=== PATIENT | female | born 1965 | race Caucasian/White ===

== ENCOUNTER 2020-10-24 15:15 | Outpatient (CLI) | payer OTHER, SELFPAY ==
--- NOTE | ~2020-10-24 | MM_ITS ---
EXAMINATION: MM screening janny BI w seun HISTORY: Screening TECHNIQUE: Craniocaudal and mediolateral oblique 3-D tomosynthesis images were obtained and synthetic 2-D images were generated. CAD analysis was submitted and interpreted. COMPARISON: Comparison to multiple prior studies sequentially, with oldest reviewed study dated 04/20. BREAST PARENCHYMAL COMPOSITION: There are scattered areas of fibroglandular density. FINDINGS: There is no evidence of suspicious mass, calcification, or architectural distortion to sugg est malignancy in either breast. There has been no suspicious interval change. IMPRESSION: 1. No mammographic evidence of malignancy. 2. Recommend routine screening mammography in one year. BI-RADS Category 1: Negative Reviewed, dictated and finalized at location A. 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
== END 2020-10-24 15:16 | disposition home or self-care (01) ==
LOC: ANHIMG 15:17
PROVIDERS: Visit Provider Nurse Practitioner Obstetrics & Gynecology
DX: Z12.31 Encounter for screening mammogram for malignant neoplasm of breast (principal)
CPT/HCPCS: 77063; 77067

== ENCOUNTER 2022-11-29 15:47 | Outpatient (CLI) | payer OTHER, SELFPAY ==
--- NOTE | ~2022-11-29 | DEXA_ITS ---
Bone Density Report Name: CYNTHIA FAUSTIN Age: 57 Sex: Female Ethnicity: White Date of : 1965 Indication: postmenopausal; screening for osteoporosis; height loss; Referring Provider: SOFIA, GAUTMA Saunders Study: Bone densitometry was performed. Exam Date: November 29, 2022 Accession number: [id number] Bone Density: Region BMD T-score Z-score Classification AP Spine(L1-L4) 1.084 0.3 1.5 Normal Femoral Neck (Left) 0.670 -1.6 -0.5 Osteopenia Total Hip (Left) 0.877 -0.5 0.2 Normal Femoral Neck (Right) 0.622 -2.0 -0.9 Osteopenia Total Hip (Right) 0.838 -0.9 -0.1 Normal Total Hip Mean 0.857 -0.7 0.1 Normal World Health Organization criteria for BMD impression classify patients as: Normal (T-score at or above -1.0), Osteopenia (T-score between -1.0 and -2.5), or Osteoporosis (T-score at or below -2.5). 10-year Fracture Risk(1): Major Osteoporotic Fracture 8.6% Hip Fracture 1.1% Reported Risk Factors: [place] (), Neck BMD=0.622, BMI=24.4 (1) FRAX(R) Version 3.08. Fracture probability calculated for an untreated patient. Fracture probability may be lower if the patient has received treatment. Clinical Information Provided by Patient: Has used the following medications: Vitamin D, Calcium Patient maximum height was 65.5 Menopause Age: 50 Drinks caffeinated beverages Onset of menses at age 12 Number of children 3 Impression: The patient has low bone mass, based on the Right Femoral Neck T-score. The patient has an estimated ten-year risk of hip fracture of 1.1% and an estimated ten-year risk of major fracture of 8.6%, based on the WHO FRAX algorithm. Discussion: BONE DENSITY IS LOW AT ONE OR MORE SKELETAL SITES. This patient's lowest T-score is low at one or more skeletal sites. It meets the World Health Organization's (WHO) criteria for ?low bone mass? (T-score between -1.0 and -2.5). The patient's 10-year risk of fracture as calculated by FRAX is less than the threshold where pharmacological therapy is recommended by the National Osteoporosis Foundation (NOF). However, all treatment decisions require clinical judgment and consideration of individual patient factors, including patient preferences, comorbidities, previous drug use, risk factors not captured in the FRAX model (e.g., frailty, falls, vitamin D deficiency, increased bone turnover, interval significant decline in bone density) and possible under or overestimation of fracture risk by FRAX. The patient should follow a healthful lifestyle (good nutrition with adequate calcium and vitamin D, and appropriate weight-bearing exercise). Follow-Up: Consider repeating this study in 2 to 3 years to reassess this patient's status, or sooner if there is some new clinical indication. Reported by: LYNNE on
--- NOTE | ~2022-11-29 | MM_ITS ---
EXAMINATION: MM screening janny BI w seun HISTORY: Screening TECHNIQUE: Craniocaudal and mediolateral oblique 3-D tomosynthesis images were obtained and synthetic 2-D images were generated. CAD analysis was submitted and interpreted. COMPARISON: Comparison to multiple prior studies sequentially, with oldest reviewed study dated 04/20. BREAST PARENCHYMAL COMPOSITION: Breast composed of scattered areas of fibroglandular density FINDINGS: There is no evidence of suspicious mass, calcification, or architectural distortion to sugg est malignancy in either breast. There has been no suspicious interval change. IMPRESSION: 1. No mammographic evidence of malignancy. 2. Recommend routine screening mammography in one year. BI-RADS Category 1: Negative Reviewed, dictated and finalized at location A. 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
== END 2022-11-29 15:48 | disposition home or self-care (01) ==
LOC: ANHIMG 15:48
PROVIDERS: Visit Provider Nurse Practitioner Obstetrics & Gynecology
DX: Z12.31 Encounter for screening mammogram for malignant neoplasm of breast (principal); Z13.820 Encounter for screening for osteoporosis; M85.852 Other specified disorders of bone density and structure, left thigh; M85.851 Other specified disorders of bone density and structure, right thigh
CPT/HCPCS: 77063; 77067; 77080

== ENCOUNTER 2025-08-19 00:28 | Day surgery (SDC) | payer OTHER, SELFPAY ==
--- OUTSIDE RECORDS SUMMARY | 2010-06-21 08:45 | XMS_ITS | Continuity of Care Document ---
Author Organization [facility] Address [address] [place] [address] Phone Care Team Providers Care Ribbon Blocker Name Role Phone Quintanilla OD, Clemente Unavailable Unavailable Procedures Procedure Date Eye Exam & Treatment Refraction Contact Lens Hydrophilic, Spherical Medical Tax SV Poly Carb Sph +/- 7.12 To +/- 20 D Au Frames Deluxe Medical Tax No Charge Contact Lens Check CL Replacement - [employer] Disp W/BW Soft [employer] - Medical No Charge Contact Lens Check No Charge Contact Lens Check Eye Exam & Treatment Refraction Optic Nerve Topography Optic Nerve Topography Visual Field Examination(s) SV Poly Carb Sph +/- 7.12 To +/- 20 D Oc Frames Deluxe [employer] - Medical Eye Exam, New Patient Refraction CL Replacement - [employer] Disp W/BW Soft [employer] Medical Advance Directives Directive Yes / No Effective Date File Name No Information Encounters Encounter Description Practice Location Reason(s) For Visit Diagnoses Date Provider Providers Copied on Encounter [facility], [address] [place] [address] [address], [place], [place], [id number], [place] tel:[phone] [facility] Center No Information 5-201 0 Quintanilla OD Clemente. [address] , [address], [place], [address], [place]. tel:[phone] [facility], [address], [place], [place], [id number], [place] tel:[phone] [facility] No Information Aug-2 5-201 0 [facility] . [address], [address], [place], [place], [id number], [place]. tel:[phone] Referring Provider: Clemente Quintanilla OD A, [address] [place], [place] [address], [place], [address]. tel:[phone] sulting Provider: Franklin Reddy, [address] [place], [place] [address]tr, [place], [address]. tel:[phone] [facility], [id number] [place] [address] [address], [place], [place], [id number], [place] tel:[phone] [facility] No Information Nov-2 6-200 8 Quintanilla OD Clemente. [address] [place], [place] [address] , [address], [place], [address], [place]. tel:[phone] [facility], [id number] [place] [address] [address], [place], [place], [id number], [place] tel:[phone] [facility] No Information Nov-2 0-200 8 Quintanilla OD Clemente. [address] [place], [place] [address]ate [address] , [address], [place], [address], [place]. tel:[phone] [facility], [id number] [place] [address] [address], [place], [place], [id number], [place] tel:[phone] [facility] No Information Nov-1 3-200 8 Quintanilla OD Clemente. [address] [place], [place] [address] , [address], [place], [address], [place]. tel:[phone] [facility], [address] [place] [address] [address], [place], [place], [id number], [place] tel:[phone] [facility] [place] No Information Nov-0 5-200 8 Quintanilla OD Clemente. [address] [place] [address] [address] , [address], [place], [address], [place]. tel:[phone] [facility], [address] [place] [address] [address], [place], [place], [id number], [place] tel:[phone] [facility] [place] No Information Dec-2 8-200 7 Quintanilla OD Clemente. [address] [place] [address] , [address], [place], [address], [place]. tel:[phone] Referring Provider: Clemente Worley, [address] [place] [address] [address], [place], [address]. tel:[phone] [facility], [address] [place] [address] [address], [place], [place], [id number], [place] tel:[phone] [facility] No Information Dec-0 6-200 7 Quintanilla OD Clemente. [address] [place] [address] , [address], [place], [address], [place]. tel:[phone] Referring Provider: Clemente Worley, [address] [place] [address] [address], [place], [address]. tel:[phone] [facility], [id number] [place] [address] [address], [place], [place], [id number], [place] tel:[phone] [facility] [place] No Information Oct-2 4-200 7 [facility] . [address], [address], [place], [place], [address], [place]. tel:[phone] Referring Provider: Clemente Worley, [address] [place] [address] [address], [place], [address]. tel:[phone] sulting Provider: Franklin Reddy, [facility] [address], [place], [address]. tel:[phone] [facility], [address], [place], [place], [id number], [place] tel:[phone] [facility] No Information 4-200 7 Quintanilla OD Clemente. [address] [facility] , [address], [place], [address], [place]. tel:[phone] Family History Family Member Type Diagnosis Age At Onset No Information Payers Payer name Insurance type Covered constitution party ID Authoriza tion(s) No Information Social History Type Description Quantity Date Captured Comments Sex Female Smoking Status No Information Chief Complaint And Reason For Visit No Information Reason For Referral Reason For Referral No Information History Of Present Illness Encounter Date Complaint History Of Prese nt Illness No Information Functional Status Date Functional Assessmen t No Information Instructions Date Instruction Additional Infor mation No Information Assessments Type Assessment Date No Information Patient Care Teams Name Effective Dates (start - stop) Status Members No Information
[2025-08-10 13:21] VITALS: BMI 27.6
--- OUTSIDE RECORDS SUMMARY | 2025-08-19 00:31 | XMS_ITS | Clinical Summary ---
Author Organization [facility] Address [address] [place] [address] Care Team Providers Care Motion Picture Photographer Name Role Phone Unavailable Primary Care Provider Unavailabl e Source Comments [facility],non-owned Affiliates and Associated Physician Practices is amultiple site organization consisting of ambulatory clinics and hospital sitesin [place], [place], [place] and [place]. This disclosure is being madepursuant to the Care Everywhere program and may not contain all information available regarding this patient. Last updated 18.[facility] [employer] Allergies No known active allergies Medications * Be aware that medications may not be up to date on this document. Alwaysverify current medications with the patient. bimatoprost (LUMIGAN) 0.01 % ophth solution 1 drop at bedtime Active Levothyroxine Sodium (LEVOTHROID PO) Acti ve LOSARTAN POTASSIUM PO Active Conj Estrog-Medroxyp rogest Dawit (PREMPRO PO) Active montelukast (SINGULAIR) 10 MG tablet Take 10 mg by mouth at bedtime Active Active Problems No known active problems Social History Tobacco Use Types Packs/Day Years Used Date Smoking Tobacco: Former Smokeless Tobacco: Never Comments No Sex and Gender Information Value Date Recorded Sex Assigned at Not on file Legal Sex Female 1:23 PM CDT Gender Identity Not on file Sexual Orientation Not on file Last Filed Vital Signs Vital Sign Reading Time Taken Comments Blood Pressure 118/66 05/28/2018 4:02 PM CDT Pulse 82 11/21/2018 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 Temperature 37.1 C (98.8 F) 11/21/2018 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 Respiratory Rate 15 11/21/2018 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 Oxygen Saturation 98% 11/21/2018 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 Inhaled Oxygen Concentration - - Weight 77.1 kg (170 lb) 11/21/2018 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 Height 167.6 cm (5' 6) 11/21/2018 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 Body Mass Index 27.44 11/21/2018 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 Plan of Treatment Health Maintenance Due Date Last Done Comments COLOGUARD (AGES 45-75) - COL ON CA SCREENING 1965 COLON MONITORING 1965 COLONOSCOPY - COLON CA SCREENING 1965 CT COLONOGRAPHY - COLON CA SCREENING 1965 Colorectal Cancer Screening 1965 FIT - COLON CA SCREENING 1965 FLEX SIG - COLON CA SCREENING 1965 LIPID TESTING 1965 MAMMOGRAM 1965 HIV SCREENING 1980 HEPATITIS C SCREENING 11/15/1983 DTAP/TDAP/TD VACCINES (1 - Tdap) 1984 HEPATITIS B VACCINE (1 of 3 - 19+ 3-dose series) 1984 PNEUMOCOCCAL VACCINE 50+ (1 of 1 - PCV) 2015 ZOSTER VACCINE (1 of 2) 2015 SCREENING FOR DIABETES 05/28/2018 DEPRESSION SCREENING 10/28/2024 COVID-19 VACCINE (1 - 2023-2 5 season) 2025 INFLUENZA VACCINE (#1) 2025 HIB VACCINE Aged Out No longer eligi ble based on patient's age to complete this topic HPV VACCINE Aged Out No longer eligi ble based on patient's age to complete this topic MENINGOCOCCAL (Group B) VACC INE SHARED DECISION-MAKING Aged Out No longer eligibl e based on patient's age to complete this topic MENINGOCOCCAL GROUPS A/C/Y/W VACCINE Aged Out No longer eligible b ased on patient's age to complete this topic Insurance [facility]
--- OUTSIDE RECORDS SUMMARY | 2025-08-19 00:32 | XMS_ITS | Data Portability ---
Author Organization [facility], [place] Address [address] [place] [address] [place] [address] Care Team Providers Care Student Activities Director Name Role Phone RENETTA ISAAC Primary Care Provider FISH TRAVIS Primary Care Provider [phone] Assessment Encounter Date Assessment Date Assessment LastModified by Organization Details LastModified Time 08/19/2020 08/19/2020 Annual gynecological exam performed. Patient will come back in a year unless there are new symptoms. [email or web address] Not available 08/19/2020 15:29:21 09/08/2021 09/08/2021 Annual gynecological exam performed. Patient will come back in a year unless there are new symptoms. Not available 09/08/2021 15:30:16 09/11/2022 09/11/2022 Annual gynecological exam performed. Patient will come back in a year unless there are new symptoms. Not available 09/11/2022 14:16:20 11/29/2023 11/29/2023 Annual gynecological exam performed. Patient will come back in a year unless there are new symptoms. [email or web address] Not available 11/29/2023 14:34:41 Plan of Treatment Reminders Order Date Submit Date Provider Last Modified By Organization Details Last Modified Time Details Appointments None recorded. Lab None recorded. Referral None recorded. Procedures None recorded. Surgeries None recorded. Imaging MAMMO, screening, bilateral [address] [facility], [address], [place], [address], 4 15:38:43 MAMMO, screening, bilateral [address] [facility], [address], [place], [address], 3 14:58:31 DEXA, axial skeleton + vertebral fracture assessment [address] [facility], [address], [place], [address], 2 10:19:45 Medication Orders Prempro 0.45 mg-1.5 mg tablet 2023 024 E[id number], [address] [place] [address], [id number], 4 14:47:55 Prempro 0.45 mg-1.5 mg tablet 2021 022 MIKE Not available 2 14:35:19 Prempro 0.45 mg-1.5 mg tablet 2020 021 MIKE [id number], [address] [facility], [place], [address], 1 16:01:15 Prempro 0.45 mg-1.5 mg tablet 2019 020 [id number], [address] [facility], [place], [address], 0 16:53:23 Patient TargetsNo targets recorded. Patient Instructions Encounter Date Encounter Id Patient Instructions Last Modified By Organization Details Last Modified Time 08/19/2020 [id number] [email or web address] Not available 16:36:48 Reason for Referral None Reported. 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 Shift in janes sugge stive of bacte rial vagin osis. Elect betsy humphrey santiago d by Meghan hough, Jayden renae, CT on 09/14 at 8:02 PM ----- ----- ----- ----- ----- ----- ----- ----- ----- ----- ----- ----- ----- ----- ----- ----- ----- ---- HPV RESUL TS: HPV mRNA E6/E7 : No HPV mRNA Detec xiang NOTE: This high risk HPV mRNA assay detec ts fourt een high- risk HPV types (16, 18, 31, 33, 35, 39, 45, 51, 52, 56, 58, 59, 66, 68) witho ut diffe renti ation . COMME NT: Note: This speci men was revie wed by a Cytot echno logis t and/o r Patho logis t (as indic ated in this repor t) after evalu ation using the Thinp rep Imagi ng Syste m. CLINI KELLEE INFOR MATIO N: Menst rual Statu s: LMP (if appli cable ): Clini kellee Histo ry/Pr eviou s Pap: Type of Neopl winston (if appli cable ): Signi fican t Clini kellee Findi ngs: Other Histo ry: Hormo chava (if appli cable ): PAP EDUCA JARROD L NOTE: The Pap Test is a scree severino test with an inher ent false negat isidoro rate. Liqui d-bas ed sampl ing may decre ase, but will not elimi daphnie, false negat isidoro resul ts. A negat isidoro resul t does not precl ude the prese nce and/o r devel opmen t of disea se, since the prese nce of abnor mal cells in the sampl e depen ds on the locat ion of the lesio n and sampl ing techn ique. Claudia nued regul ar scree severino is the best metho d of cance r preve ntion . If repor xiang cytol ogic findi ng do not corre late with physi kellee and/o r histo rical findi ngs, furth er inves tigat ion is recom wei d, as clini norberto warra nted. Not Available [facility] ([facility]) [address] [facility], [place], [address], 09/14/2022 21:11:48 11/05/19 21 MAMMO , scree severino, bilat eral No observ ation record ed. MIKE Not Available 2020 20:06:37 11/30/19 23 11/29/2022 MAMMO , scree severino, bilat eral No observ ation record ed. [address], [place], [address], 11/29/2023 14:52:44 02/10/20 23 DEXA, axial skele ton + verte bral fract ure asses sment No observ ation record ed. [address] [facility] [address], [place], [address], 11/29/2023 14:52:44 Result Notes None recorded. Problems Name Problem SNOMED Code Status Onset Date Resolution Date Notes Provider Name and Address Organization Details Recorded Time Menopaus e present [id number] Completed 201509/08/2021 Menopause ;Recorded Elsewhere : No Locati on: [facility] So urce: EHR Chron ic: N Practic e ID: [id number] Bill able Time: 01:30:00 PM Mari Del Rio [facility] 13:17:[address] Concept Completed 201509/08/2021 Encntr for general adult medical exam w/o abnormal findings; Recorded Elsewhere : No Locati on: [facility] So urce: EHR Chron ic: N Practic e ID: [id number] Bill able Time: 01:30:[address] [facility] 13:17:53 Screenin g for malignan t neoplasm of rectum Completed 201609/08/2021 Encounter for screening for malignant neoplasm of rectum;Re corded Elsewhere : No Locati on: [facility] So urce: EHR Chron ic: N Practic e ID: 0001 Bill able Time: 02:00:00 PM Mari Del Rio [facility] 13:17:[address] Concept Completed 201609/08/2021 Encntr for oven unloader exam (general) (routine) w/o abn findings; Recorded Elsewhere : No Locati on: [facility] So urce: EHR Chron ic: N Practic e ID: 0001 Bill able Time: 02:00:[address] [facility] 13:17:55 Postmeno pausal bleeding [id number] Completed 201609/08/2021 Postmenop ausal bleeding; Recorded Elsewhere : No Locati on: [facility] So urce: EHR Chron ic: N Practic e ID: 0001 Bill able Time: 03:15:00 PM Mari Del Rio [facility] 13:17:50 Problem Notes None recorded. Procedures Surgical History Date Name Laterality Status Provider Name and Address Organization Details Recorded Time 11/05/19 21 Date of Last Mammogram completed [facility] 09/08/2021 13:27:53 10/01/20 18 completed [facility] 09/08/2021 15:31:00 10/01/20 18 Date of Last Colonoscopy completed [facility] 09/08/2021 15:31:00 09/29/20 18 colonoscopy completed Helena Mayer [facility]- [address], [place], [address], [facility] 09/11/2022 14:19:49 Hysteroscopy completed [facility] 09/08/2021 13:22:26 Imaging Results None recorded. Procedure Notes None recorded. Medical Equipment None Reported. Allergies Allergen ID Allergen Name Allergen Category Reaction Reaction Severity Criticality Documentation Date Start Date Code Code System Note Provider Name and Address Organization Details Recorded Time 2495 cyclacill in Not available Not available Not available Not available 08/19/2020 2968 RxNorm Ada valdez, [facility] 0 15:29:51 Medications Name Sig Start Date Stop Date Status Note LastModified by Organization Details LastModified Time latanopro st 0.005 % eye drops INSTILL 1 DROP IN BOTH EYES AT BEDTIME active Not Available Not Available No t Available atorvasta tin 10 mg tablet 09/08 completed Not Available Not Available Not Available medroxypr ogesteron e 2.5 mg tablet TAKE 1 TABLET BY MOUTH EVERY DAY 11/29 completed Not Available Not Available Not Available metronida zole 0.75 % (37.5 mg/5 gram) vaginal gel Insert 1 applicat orful every day by vaginal route at bedtime for 5 days. 11/29 completed Not Available Not Available Not Available levothyro xine 75 mcg tablet TAKE 1 TABLET BY MOUTH EVERY MORNING active Not Available Not Available No t Available levothyro xine 100 mcg tablet TAKE 1 TABLET BY MOUTH EVERY DAY 11/29 completed Not Available Not Available Not Available levothyro xine 50 mcg tablet take 1 tablet by oral route every day 06/22/ 2016 11/12 /2021 completed Prescrib ed Elsewher e: Yes Loca tion: [facility] M odify By: amkfely Zaman ncounter DateTime : 04/18/20 16 01:30:00 PM Not Available Not Available Not Available hydrochlo rothiazid e 12.5 mg capsule TAKE 1 CAPSULE BY MOUTH EVERY DAY active Not Available Not Available No t Available monteluka st 10 mg tablet TAKE 1 TABLET BY MOUTH EVERY DAY active Not Available Not Available No t Available hydrochlo rothiazid e 25 mg tablet TAKE 1 TABLET BY MOUTH EVERY MORNING 09/11 completed Not Available Not Available Not Available estradiol 0.5 mg tablet TAKE 1 TABLET BY MOUTH EVERY DAY 11/29 completed Not Available Not Available Not Available timolol maleate 0.5 % eye drops INSTILL 1 DROP IN BOTH EYES EVERY MORNING active Not Available Not Available No t Available losartan 100 mg tablet 09/08 completed Not Available Not Available Not Available fluticaso ne propionat e 50 mcg/actua tion nasal spray,sumanth pension SPRAY ONE SPRAY INTO EACH NOSTRIL EVERY DAY active Not Available Not Available No t Available sertralin e 50 mg tablet Take 1 tablet every day by oral route. active Not Available Not Available No t Available olmesarta n 20 mg tablet TAKE 1 TABLET BY MOUTH EVERY DAY active Not Available Not Available No t Available olmesarta n 40 mg tablet TAKE 1 TABLET BY MOUTH EVERY DAY 11/29 completed Not Available Not Available Not Available ezetimibe 10 mg tablet 09/08 completed Not Available Not Available Not Available Prempro 0.45 mg-1.5 mg tablet TAKE 1 TABLET BY MOUTH EVERY DAY FOR 90 DAYS 2023 active Not Available Not Available Not Avai lable Prempro 0.3 mg-1.5 mg tablet take 1 tablet by oral route every day 08/11 completed Prescrib ed Elsewher e: No Locat ion: [facility] M odify By: sakshihar tz Encou nter DateTime : 07/02/20 18 03:41:30 PM Not Available Not Available Not Available losartan 100 mg-hydroc hlorothia zide 12.5 mg tablet take 1 tablet by oral route every day 09/08 completed Prescrib ed Jhonny e: Yes Loca tion: [facility] M odify By: maxim carrington DateTime : 04/18/20 16 01:30:00 PM Not Available Not Available Not Available fenofibra te nanocryst allized 145 mg tablet TAKE 1 TABLET BY MOUTH EVERY DAY active Not Available Not Available No t Available GaviLyte- G 236 gram-22.7 4 gram-6.74 gram-5.86 gram oral solution 08/19 completed Not Available Not Available Not Available Xiidra 5 % eye drops in a dropperet te INSTILL ONE DROP IN EACH EYE TWICE A DAY 09/11 completed Not Available Not Available Not Available Flublok Quad (PF) 180 mcg (45 mcg x 4)/0.5 mL IM syringe PHARMACY ADMINIST ERED 09/08 completed Not Available Not Available Not Available Vitals Date Recorded Body mass index (BMI) Body height Systolic And Diastolic Provider Name and Address Organization Details Last Updated DateTime 11/29/2023 27 kg/m2 161.29 cm 122/76 mm[Hg] Helena Mayer, [facility] [address], [place], [address], [facility] 11/29/2023 14:53:33 Date Recorded Body weight Provider Name an d Address Organization Details Last Updated DateTime 11/29/2023 63661.38 alex Meade [facility] 11/29/2023 14:34:58 Date Recorded Systolic And Diastolic Provider Name and Address Organization Details Last Updated DateTime 08/19/2020 122/80 mm[Hg] Helena Mayer [facility] [address], [place], [address], [facility] 08/19/2020 16:09:43 Date Recorded Body height Body mass index (BMI) Body weight Provider Name and Address Organization Details Last Updated DateTime 08/19/2020 165.1 cm 29.3 kg/m2 20451.26 alex Lyons [facility] 08/19/2020 15:40:21 Date Recorded Systolic And Diastolic Provider Name and Address Organization Details Last Updated DateTime 09/08/2021 122/76 mm[Hg] Helena Mayer, [facility] [address], [place], [address], [facility] 09/08/2021 16:02:32 Date Recorded Body height Body mass index (BMI) Body weight Provider Name and Address Organization Details Last Updated DateTime 09/08/2021 161.29 cm 29.1 kg/m2 54838.93 alex Del Rio [facility] 09/08/2021 15:30:41 Date Recorded Systolic And Diastolic Provider Name and Address Organization Details Last Updated DateTime 09/11/2022 128/72 mm[Hg] Helena Mayer [facility] [address], [place], [address], [facility] 09/11/2022 14:33:09 Date Recorded Body height Body weight Provider Name and Address Organization Details Last Updated DateTime 09/11/2022 161.29 cm 61440.71 alex Del Rio [facility] 09/11/2022 14:17:06 Social History Question Answer Notes LastModified by Organizat ion Details LastModified Time Tobacco Smoking Status Former Smoker Mari Del Rio [facility], [facility] 09/11/2022 14:17:29 Do You Have An Advance Directive? No Information n ot available 09/08/2021 How Many Years Have You Consumed Alcohol? 35 Information not available 09/11/2022 Are You Blind Or Do You Have Difficulty Seeing? No Information n ot available 09/08/2021 What Is Your Level Of Caffeine Consumption? Moderate Information not available 09/08/2021 How Much Tobacco Do You Chew? None Information not available 09/08/2021 In The 14 Days Before Symptom Onset, Have You Had Close Contact With A Laboratory-confirm ed COVID-19 While That Case Was Ill? No Information n ot available 09/08/2021 In The 14 Days Before Symptom Onset, Have You Had Close Contact With A Person Who Is Under Investigation For COVID-19 While That Person Was Ill? No Information not available 09/08/2021 Have You Been To An Area Known To Be High Risk For COVID-19? No Information not available 09/08/2021 Are You Deaf Or Do You Have Serious Difficulty Hearing? No Information not available 09/08/2021 What Type Of Diet Are You Following? REGULAR Information n ot available 09/08/2021 What Is The Highest Grade Or Level Of School You Have Completed Or The Highest Degree You Have Received? [id number] Information not available 09/08/2021 Are There Any Guns Present In Your Home? Yes Information not available 09/08/2021 Do You Use Protection During Sex? No Information not available 09/08/2021 Do You Use Your Seat Belt Or Car Seat Routinely? Yes Information not available 09/08/2021 Do You Have Smoke And Carbon Monoxide Detectors In Your Home? Yes Information not available 09/08/2021 How Much Tobacco Do You Smoke? No Information not available 09/08/2021 Do You Use Sunscreen Routinely? Yes Information not available 09/08/2021 Have You Used IV Drugs? No Information not available 09/08/2021 Sex: Unknown Functional Status Question Answer Note LastModified by Organizat ion Details LastModified Time Do you use any illicit or recreational drugs? Yes Information not available 09/11/2022 What is your level of alcohol consumption? Moderate Information not available 09/08/2021 Are you able to walk independently without assistance or assistive devices? 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 Occasional Information not available 09/08/2021 Mental Status Question Answer Note LastModified by Organization D etails LastModified Time Do you feel stressed (tense, restless, nervous, or anxious, or unable to sleep at night)? [id number] Information not available 09/11/2022 Family History Relationship Description Onset Age of this Age Resolved Age Notes LastModified by Organization Details LastModified Time Mother Hypertensive disorder [email or web address] Not available 2019 15:31:54 Mother Disorder of thyroid gland [email or web address] Not available 2019 15:32:00 Father Disorder of cardiovascul ar system [email or web address] Not available 2023 14:11:21 Paternal Grandmother Carcinoma in situ of breast [email or web address] Not available 2023 14:11:21 Medical History Condition Response Other Y Thyroid Problems Y Hypertension Y High Cholesterol Y Gynecological History Statement/Question Response Abnormal Pap N Date of Last Mammogram 11/05/2020 N STIs/STDs N HPV Vaccine N Current Control Method None Age at First Child 18 If Post Menopausal, Age at Menopause 50 Date of Last Colonoscopy 10/01/2018 Sexually Active? Y Age of first menstrual cycle 12 Date of Last Pap Smear Sexual Problems? N LMP Unknown 10/01/2018 Y Obstetrics History GPAL:G 5 P 0 0 2 3 Type Value Induced 1 Spontaneous 1 Living 3 Total 5 Past Encounters Encounter ID Performer Location Encounter Start Date Encounter Closed Date Diagnosis/Indication Diagnosis SNOMED-CT Code Diagnosis ICD10 Code Diagnosis IMO Codes Diagnosis Note [id number] [facility] [address] [address] 08/19/2020 15:25:21 08/19/2020 17:00:06 Gynecologic examination 57210270 Z01.419 Take Calcium with Vitamin D 12-1500mg daily. Do monthly self breast exams. It is advised to get annual flu shot in the fall and she could obtain at [facility] or [facility] take care clinic. If you haven't received the Tdap vaccine in the last 10 years you should obtain one as well. Have mammogram yearly, bone density every 2-3 years and colonoscop y every 5-10 years depending on findings and history. Engage in daily exercise of low impact aerobic exercise 45-60 minutes 4-5 times weekly. Avoid tobacco and illicit drugs as well as using moderation with alcohol intake less than 1-2 8 oz beverages daily. This lifestyle behavior pattern will lead to less health conditions and longer life span. If BMI greater than 25 weight watchers or dietary consult advised. Questions have been answered. Patient appears to understand instructio ns, but if you have any further questions call or respond to this email [facility] ip Norm pap/hpv hx Next pap/hpv due 2021 which pt is agreeable too. Mammo ordered No issues or complaints this year. Menopausal symptom 61100 002 N95.1 We discussed continuing HRT therapy this year as she is doing well on Prempro. No issueswith current regimen. Wishes to continue. RF's sent. [id number] Helena Mayer , [facility] [address] [address] 09/08/2021 15:05:20 09/09/2021 10:40:09 Gynecologic examination [id number] Z01.419 Take Calcium with Vitamin D 12-1500mg daily. Do monthly self breast exams. It is advised to get annual flu shot in the fall and she could obtain at [facility] or [facility] care clinic. If you haven't received the Tdap vaccine in the last 10 years you should obtain one as well. Have mammogram yearly, bone density every 2-3 years and colonoscop y every 5-10 years depending on findings and history. Engage in daily exercise of low impact aerobic exercise 45-60 minutes 4-5 times weekly. Avoid tobacco and illicit drugs as well as using moderation with alcohol intake less than 1-2 8 oz beverages daily. This lifestyle behavior pattern will lead to less health conditions and longer life span. If BMI greater than 25 weight watchers or dietary consult advised. Questions have been answered. Patient appears to understand instructio ns, but if you have any further questions call or respond to this [facility]/hpv hx Next pap/hpv due 2021 which pt is agreeable too. Mammo ordered No issues or complaints this year.Dexa- consider once 5yrs in menopause and if height continues to decrease next year. Colon-UTD Hormone re placement therapy [id number] Z79.890 We discussed Menopausal Hormone therapy (MHT) for women with intact uterus with the goals of reliving vaso-motor sx's using estrogen/p rogestin therapy (EPT) using lowest doses for shortest duration in women 40-59yo. Contraindi cations include: Hx of DVT or thrombolic events, High cholestero l, Hx of breast cancer, known CHD, active liver disease, unexplaine d vag bleeding, high risk endometria l cancer, TIA. Side effects can include but are not limited to: Irregular vag bleeding,, breast tenderness , nausea, weight changes, libido changes, nausea. Adverse Rxn: Elevated BP migraine w/ visual changes, breast cancer dx, [place]/stroke, DVT/PE, Endometria l cancer. Please contact office with any new or worsening side effects or adverse reactions. Or if a medical emergency please go to nearest ED/Urgency care for further evaluation . Opts to continue this therapy at this time after re-reviewi ng R/B's.RF sent x 1yr [id number] Helena Mayer , [facility] [address] [address] 09/11/2022 13:57:54 09/11/2022 17:49:20 Gynecologic examination [id number] Z01.419 Take Calcium with Vitamin D 12-1500mg daily. Do monthly self breast exams. It is advised to get annual flu shot in the fall and she could obtain at [facility] or [facility] care clinic. If you haven't received the Tdap vaccine in the last 10 years you should obtain one as well. Have mammogram yearly, bone density every 2-3 years and colonoscop y every 5-10 years depending on findings and history. Engage in daily exercise of low impact aerobic exercise 45-60 minutes 4-5 times weekly. Avoid tobacco and illicit drugs as well as using moderation with alcohol intake less than 1-2 8 oz beverages daily. This lifestyle behavior pattern will lead to less health conditions and longer life span. If BMI greater than 25 weight watchers or dietary consult advised. Questions have been answered. Patient appears to understand instructio ns, but if you have any further questions call or respond to this email Pap/hpv sentSTD Screen declinedGe netic Screen discussedC olon Screen UTD PCPDexa Screen orderedRou haseeb Labs PCPMammo ordered Hormone re placement therapy [id number] Z79.890 We discussed Menopausal Hormone therapy (MHT) for women with intact uterus with the goals of reliving vaso-motor sx's using estrogen/p rogestin therapy (EPT) using lowest doses for shortest duration in women 40-59yo. Contraindi cations include: Hx of DVT or thrombolic events, High cholestero l, Hx of breast cancer, known CHD, active liver disease, unexplaine d vag bleeding, high risk endometria l cancer, TIA. Side effects can include but are not limited to: Irregular vag bleeding,, breast tenderness , nausea, weight changes, libido changes, nausea. Adverse Rxn: Elevated BP migraine w/ visual changes, breast cancer dx, [place]/stroke, DVT/PE, Endometria l cancer. Please contact office with any new or worsening side effects or adverse reactions. Or if a medical emergency please go to nearest ED/Urgency care for further evaluation . Opts to continue this therapy at this time after re-reviewi ng R/B's.RF sent x 1yr Screening mammography 24 208036 Z12.31 Screening for osteoporosis 851494760 Z13.820 Risk factor: Menopause >5yrs, hypothyroi dism, HTN [id number] Helena Mayer , [facility] [address] [address] 11/29/2023 14:11:06 11/29/2023 15:20:24 Hormone replacement therapy [id number] Z79.890 Counseled on the following: Females >10yrs past menopause (& age 60yo+) are generally not good candidates for starting (1st use) systemic HT. Decisions to continue systemic HT > a decade past menopause (or past age 60yo) requires balancing R/B's; & individual ized needs. Non-hormon al options may be more appropriat e for females >10yrs past menopause. Screening mammography [id number] Z12.31 Gynecologi c examination [id number] Z01.419 Z11.51 Take Calcium with Vitamin D 12-1500mg daily. Do monthly self breast exams. It is advised to get annual flu shot in the fall and she could obtain at [facility] or [facility] care clinic. If you haven't received the Tdap vaccine in the last 10 years you should obtain one as well. Have mammogram yearly, bone density every 2-3 years and colonoscop y every 5-10 years depending on findings and history. Engage in daily exercise of low impact aerobic exercise 45-60 minutes 4-5 times weekly. Avoid tobacco and illicit drugs as well as using moderation with alcohol intake less than 1-2 8 oz beverages daily. This lifestyle behavior pattern will lead to less health conditions and longer life span. If BMI greater than 25 weight watchers or dietary consult advised. Questions have been answered. Patient appears to understand instructio ns, but if you have any further questions call or respond to this email Pap/hpv due every 3yrs per asccp unless otherwise indicated. STD Screen declinedGe netic Screen discussedC olon Screen UTD PCPDexa Screen PCPRoutine Labs PCPMammo ordered Health Concerns Section Related Observation LastModified by Organization Detai ls LastModified Time None Recorded Concern Status LastModified by Organization Details LastModified Time None Recorded Advance Directives Directive N: Payers Insurance Date Sequence Insurance Name Policy Number Policy Do Covered Member ID Do Member ID Guarantor Name 11/28/2023 1 [facility] [id number] Wing Chowdary [id number] Ankit Chowdary Notes Date Note Type Note Provider Name and Address Organization Details Recorded Time 0 text/html Annual GYNReported by PatientHistoryFor history, patient reportsno gynecologic complaints.Genitourinary symptomsFor urinary symptoms, patient reportsno hematuriaandno incontinence. For vulva, patient reportsno genital lesion. For vagina, patient reportsnormal vaginal discharge. For menstrual cycle, (postmenopausal).Breast symptomsFor breast, patient reportsno breast pain,no breast lump, andno nipple discharge.Endocrine symptomsFor sexual complaints, patient reportsno sexual complaints,no pain during intercourse, andnormal libido. For menopausal symptoms, patient reportsno menopausal symptomsandnormal vaginal lubrication.Psychological symptomsFor psychological symptoms, patient reportsno depression,no anxiety, andno pmdd.Preventative measuresFor preventive measures, patient reportsencourage self breast examination,encourage regular exercise,encourage no tobacco use,encourage regular mammograms starting age 40,needs to schedule mammogram, andup to date on colonoscopy screening. Helena Mayer, NP-BC [address], [place], [address], [facility] 08/19/2020 16:37:08 1 text/html Annual Lap Maker Post-MenopausalReported by PatientGenitourinary symptomsFor menopausal symptoms, patient reportsno menopausal symptomsandnormal vaginal lubrication. For vaginal bleeding, patient reportshistory of menopause having occurredandno history of post menopausal bleeding. For urinary symptoms, patient reportsno hematuria,no incontinence,no nocturia, andno urinary frequency. For vulva, patient reportsno genital lesionandno vulvar atrophy. For vagina, patient reportsnormal vaginal dischargeandno vaginal atrophy.Breast symptomsFor breast, patient reportsno breast lump,no nipple discharge, andno breast pain.Psychological symptomsFor sexual complaints, patient reportsno sexual complaints. For psychological symptoms, patient reportsno depressionandno anxiety.Preventative measuresFor preventive measures, patient reportsencourage regular mammograms starting age 40,encourage self breast examination,encourage regular exercise,encourage no tobacco use,needs to schedule mammogram, andhistory of recent colonoscopy. [facility] [address], [place], [address], [facility] 09/08/2021 16:03:29 2 text/html Annual Lap Maker Post-MenopausalReported by PatientGenitourinary symptomsFor menopausal symptoms, patient reportsno menopausal symptomsandnormal vaginal lubrication. For vaginal bleeding, patient reportshistory of menopause having occurredandno history of post menopausal bleeding. For urinary symptoms, patient reportsno hematuria,no incontinence,no nocturia, andno urinary frequency. For vulva, patient reportsno genital lesionandno vulvar atrophy. For vagina, patient reportsnormal vaginal dischargeandno vaginal atrophy.Breast symptomsFor breast, patient reportsno breast lump,no nipple discharge, andno breast pain.Psychological symptomsFor sexual complaints, patient reportsno sexual complaints. For psychological symptoms, patient reportsno depressionandno anxiety.Preventative measuresFor preventive measures, patient reportsencourage regular mammograms starting age 40,encourage self breast examination,encourage regular exercise,encourage no tobacco use,needs to schedule mammogram,history of recent colonoscopy, andneeds to schedule bone density. Helena Mayer [facility]- [address], [place], [address], [facility] 09/11/2022 14:33:37 4 text/html Annual Lap Maker Post-MenopausalReported by PatientGenitourinary symptomsFor menopausal symptoms, patient reportsno menopausal symptomsandnormal vaginal lubrication. For vaginal bleeding, patient reportshistory of menopause having occurredandno history of post menopausal bleeding. For urinary symptoms, patient reportsno hematuria,no incontinence,no nocturia, andno urinary frequency. For vulva, patient reportsno genital lesionandno vulvar atrophy. For vagina, patient reportsnormal vaginal dischargeandno vaginal atrophy.Breast symptomsFor breast, patient reportsno breast lump,no nipple discharge, andno breast pain.Psychological symptomsFor sexual complaints, patient reportsno sexual complaints. For psychological symptoms, patient reportsno depressionandno anxiety.Preventative measuresFor preventive measures, patient reportsencourage regular mammograms starting age 40,encourage self breast examination,encourage regular exercise,encourage no tobacco use,needs to schedule mammogram, andhistory of recent colonoscopy. Helena Mayer, [facility]- [address], [place], [address], [facility] 11/29/2023 14:55:13 OBGyn Episode Ob Episode Information Episode Created Date Number of Fetuses Patient Bloodtype Patient rh Status Prepregnancy Weight lbs Domestic Partner Domestic Partner Phone Father Name Sausage Cutter Status 08/19/20 20 1 CLOSED Fetus Data First Name Last Name Admitted to NICU Weight (g) Sex Living Outcome Pediatric Complications Fetus ID Race Codes Race Delivery Type [id number] Vaginal Delivery Enrique Calculation Initial Enrique Date Initial Exam Date Initial Exam Provider Initial Ultrasound Date Last Menstrual Period Date Ultra Sound Weeks Gestation 0 Eighteen To Twenty Week Enrique Update Ultra Sound Date Fundal Height At Umbil Quickening Date Ultra Sound Latest Weeks Gestation Final Enrique Confirmed By Final Enrique Confirmed Date Final Enrique Date Ultra Sound Latest Days Gestation 0 0 Menstrual History Last Menstrual Date Menses Monthly On Bcp Conception Prior Menses Frequency Hcg Plus Date Menarche Onset Age Delivery Information Delivery Date Delivery Type Labor Anesthesia Weeks Gestation Incision Type Labor Labor Length Hrs Delivered By Post Complications Tubal Sterilization Discharge Date Comments 8 Discharge Information Feeding Method Contraceptive Method Maternal HG B and HCT Levels Ob Episode Information Episode Created Date Number of Fetuses Patient Bloodtype Patient rh Status Prepregnancy Weight lbs Domestic Partner Domestic Partner Phone Father Name Sausage Cutter Status 08/19/20 20 1 CLOSED Fetus Data First Name Last Name Admitted to NICU Weight (g) Sex Living Outcome Pediatric Complications Fetus ID Race Codes Race Delivery Type [id number] Vaginal Delivery Enrique Calculation Initial Enrique Date Initial Exam Date Initial Exam Provider Initial Ultrasound Date Last Menstrual Period Date Ultra Sound Weeks Gestation 0 Eighteen To Twenty Week Enrique Update Ultra Sound Date Fundal Height At Umbil Quickening Date Ultra Sound Latest Weeks Gestation Final Enrique Confirmed By Final Enrique Confirmed Date Final Enrique Date Ultra Sound Latest Days Gestation 0 0 Menstrual History Last Menstrual Date Menses Monthly On Bcp Conception Prior Menses Frequency Hcg Plus Date Menarche Onset Age Delivery Information Delivery Date Delivery Type Labor Anesthesia Weeks Gestation Incision Type Labor Labor Length Hrs Delivered By Post Complications Tubal Sterilization Discharge Date Comments 3 Discharge Information Feeding Method Contraceptive Method Maternal HG B and HCT Levels Ob Episode Information Episode Created Date Number of Fetuses Patient Bloodtype Patient rh Status Prepregnancy Weight lbs Domestic Partner Domestic Partner Phone Father Name Sausage Cutter Status 08/19/20 20 1 CLOSED Fetus Data First Name Last Name Admitted to NICU Weight (g) Sex Living Outcome Pediatric Complications Fetus ID Race Codes Race Delivery Type 5601 Vaginal Delivery Enrique Calculation Initial Enrique Date Initial Exam Date Initial Exam Provider Initial Ultrasound Date Last Menstrual Period Date Ultra Sound Weeks Gestation 0 Eighteen To Twenty Week Enrique Update Ultra Sound Date Fundal Height At Umbil Quickening Date Ultra Sound Latest Weeks Gestation Final Enrique Confirmed By Final Enrique Confirmed Date Final Enrique Date Ultra Sound Latest Days Gestation 0 0 Menstrual History Last Menstrual Date Menses Monthly On Bcp Conception Prior Menses Frequency Hcg Plus Date Menarche Onset Age Delivery Information Delivery Date Delivery Type Labor Anesthesia Weeks Gestation Incision Type Labor Labor Length Hrs Delivered By Post Complications Tubal Sterilization Discharge Date Comments 4 Discharge Information Feeding Method Contraceptive Method Maternal HG B and HCT Levels Ob Episode Information Episode Created Date Number of Fetuses Patient Bloodtype Patient rh Status Prepregnancy Weight lbs Domestic Partner Domestic Partner Phone Father Name Sausage Cutter Status 09/08/20 21 1 CLOSED Fetus Data First Name Last Name Admitted to NICU Weight (g) Sex Living Outcome Pediatric Complications Fetus ID Race Codes Race Delivery Type , Spontane ous [id number] Enrique Calculation Initial Enrique Date Initial Exam Date Initial Exam Provider Initial Ultrasound Date Last Menstrual Period Date Ultra Sound Weeks Gestation 0 Eighteen To Twenty Week Enrique Update Ultra Sound Date Fundal Height At Umbil Quickening Date Ultra Sound Latest Weeks Gestation Final Enrique Confirmed By Final Enrique Confirmed Date Final Enrique Date Ultra Sound Latest Days Gestation 0 0 Menstrual History Last Menstrual Date Menses Monthly On Bcp Conception Prior Menses Frequency Hcg Plus Date Menarche Onset Age Delivery Information Delivery Date Delivery Type Labor Anesthesia Weeks Gestation Incision Type Labor Labor Length Hrs Delivered By Post Complications Tubal Sterilization Discharge Date Comments 3 Discharge Information Feeding Method Contraceptive Method Maternal HG B and HCT Levels Ob Episode Information Episode Created Date Number of Fetuses Patient Bloodtype Patient rh Status Prepregnancy Weight lbs Domestic Partner Domestic Partner Phone Father Name Sausage Cutter Status 09/08/20 21 1 CLOSED Fetus Data First Name Last Name Admitted to NICU Weight (g) Sex Living Outcome Pediatric Complications Fetus ID Race Codes Race Delivery Type , Induced [id number] Enrique Calculation Initial Enrique Date Initial Exam Date Initial Exam Provider Initial Ultrasound Date Last Menstrual Period Date Ultra Sound Weeks Gestation 0 Eighteen To Twenty Week Enrique Update Ultra Sound Date Fundal Height At Umbil Quickening Date Ultra Sound Latest Weeks Gestation Final Enrique Confirmed By Final Enrique Confirmed Date Final Enrique Date Ultra Sound Latest Days Gestation 0 0 Menstrual History Last Menstrual Date Menses Monthly On Bcp Conception Prior Menses Frequency Hcg Plus Date Menarche Onset Age Delivery Information Delivery Date Delivery Type Labor Anesthesia Weeks Gestation Incision Type Labor Labor Length Hrs Delivered By Post Complications Tubal Sterilization Discharge Date Comments 5 Discharge Information Feeding Method Contraceptive Method Maternal HG B and HCT Levels
[2025-08-19 08:50] VITALS: BP 125/79; PULSE 55; RESP 18; TEMP 36.4; O2SAT 99; BMI 27.9
[2025-08-19] MEDS: LACTATED RINGERS 1,000 ML 150 ML IV CONT (09:05)
--- NOTE | 2025-08-19 09:24 | WPDANESEPPF ---
Anes - Initial Pre Proc Eval Procedure: Operation Date: 08/19/25 10:00 Proposed Procedures p Screening Colonoscopy - Mj Harper MD Date/Time: 08/19/25 09:24 Surgeon: Mj Harper MD Pre Op Diagnosis: Personal history of colon polyps, unspecified Patient Data Age: 59 Gender: F Height: 1.63 m Weight: 73.9 kg Last Vital Signs Temp 36.4 C 08/19/25 08:50 Pulse 55 L 08/19/25 08:50 Resp 18 08/19/25 08:50 BP 125/79 08/19/25 08:50 Pulse Ox 99 08/19/25 08:50 O2 Del Method Room Air 08/19/25 08:50 Allergies Allergy/AdvReac Type Severity Reaction Status Date / Time minocycline Allergy Mild rash Verified 08/19/25 08:56 Home Medications ?Medication ?Instructions ?Recorded ?Confirmed ?Type hydrochlorothiazide 25 mg tablet 25 mg PO DAILY 09/28/19 08/10/25 History latanoprost 0.005 % eye drops 1 drp ophthalmic (eye) HS 09/28/19 08/19/25 History levothyroxine 100 mcg tablet 100 mcg PO DAILY 09/28/19 08/19/25 History montelukast 10 mg tablet 10 mg PO DAILY 09/28/19 08/19/25 History fenofibrate nanocrystallized 145 145 mg PO DAILY 08/10/25 08/19/25 History mg tablet hydrochlorothiazide 12.5 mg capsule 12.5 mg PO DAILY 08/10/25 08/19/25 History minoxidil 2.5 mg tablet 1.25 mg PO ONCE 08/10/25 08/19/25 History olmesartan 20 mg tablet 20 mg PO DAILY 08/10/25 08/19/25 History sertraline 50 mg tablet 50 mg PO DAILY 08/10/25 08/19/25 History timolol maleate 0.5 % eye drops 1 drp EACH EYE DAILY 08/10/25 08/19/25 History Patient hx anesthesia problems: none Family hx anesthesia problems: none Results Review: All pre-operative results and documents have been reviewed as part of the pre-operative evaluation. [facility] Past Medical History Medical History Colon cancer screening Hypothyroid Hypertension Hyperlipidemia Social History Social History Smoking status: Former smoker Alcohol intake: current Drinks per week: 12 Substance use: current Substance use type: marijuana Other substance usage details: nightly Living arrangements: with family Spiritual care concerns: No Anes - Eval Final PreProcedure Day of Procedure 08/19/25 09:24 Patient weight: overweight Heart: regular rate and rhythm Lungs: clear to auscultation Airway: Mallampati scale class II Neurological: alert and oriented Last oral intake: >/= 8 hours ASA classification: II Emergent: no Anesthetic plan: proceed Anesthesia type and monitoring: general GIVS and standard monitoring Results Review: All pre-operative results and documents have been reviewed as part of the pre-operative evaluation. Informed Consent: The patient's anesthetic plan and its attendant risks and benefits were discussed with the patient/family/POA. Questions were solicited and answers provided to the satisfaction of the patient/family/POA.
--- NOTE | 2025-08-19 10:05 | PM.HPGS ---
History of Present Illness History of Present Illness Consent: Risks, benefits, and alternatives have been discussed and questions answered. Patient agrees to proceed with procedure. Chief complaint: Personal history of colon polyps, unspecified Narrative: Ankit Chowdary is a 59 year old female with colon polyp in 2019 Review of Systems Review of Systems: All systems reviewed & are unremarkable except as noted in HPI and below PMFSH Past Medical History Medical History (Updated 08/19/25 @ 10:07 by Mj Harper MD) Colon polyp Colon cancer screening Hypothyroid Hypertension Hyperlipidemia Social History Social History Smoking status: Former smoker Alcohol intake: current Drinks per week: 12 Substance use: current Substance use type: marijuana Other substance usage details: nightly Living arrangements: with family Spiritual care concerns: No Meds Home Medications and Allergies Home Medications ?Medication ?Instructions ?Recorded ?Confirmed ?Type hydrochlorothiazide 25 mg tablet 25 mg PO DAILY 09/28/19 08/10/25 History latanoprost 0.005 % eye drops 1 drp ophthalmic (eye) HS 09/28/19 08/19/25 History levothyroxine 100 mcg tablet 100 mcg PO DAILY 09/28/19 08/19/25 History montelukast 10 mg tablet 10 mg PO DAILY 09/28/19 08/19/25 History fenofibrate nanocrystallized 145 145 mg PO DAILY 08/10/25 08/19/25 History mg tablet hydrochlorothiazide 12.5 mg capsule 12.5 mg PO DAILY 08/10/25 08/19/25 History minoxidil 2.5 mg tablet 1.25 mg PO ONCE 08/10/25 08/19/25 History olmesartan 20 mg tablet 20 mg PO DAILY 08/10/25 08/19/25 History sertraline 50 mg tablet 50 mg PO DAILY 08/10/25 08/19/25 History timolol maleate 0.5 % eye drops 1 drp EACH EYE DAILY 08/10/25 08/19/25 History Allergies Allergy/AdvReac Type Severity Reaction Status Date / Time minocycline Allergy Mild rash Verified 08/19/25 08:56 Vital Signs Vital Signs - 24 hr 08/19/25 08:50 Temperature 97.6 F Pulse Rate 55 L Respiratory Rate 18 Blood Pressure 125/79 Pulse Oximetry 99 Oxygen Delivery Room Air Exam Const: General: comfortable and no acute distress HENMT: Face/Nose/Sinus: Normal nares present Eyes: General: appearance normal, both eyes and all related structures Neck: Neck: no JVD Resp: Auscultation: clear to auscultation bilaterally Cardio: Rate: regular rate Rhythm: regular rhythm GI: Inspection: non-distended GI Palp: Yes Soft to palpation Skin: General skin exam: normal color Extrem: General: normal to inspection Psych: Mental Status: mental status grossly normal Assessment and Plan Assessment and plan (1) Colon polyp: Code(s): K63.5 - Polyp of colon Status: Acute Assessment and Plan: colonoscopy
--- NOTE | 2025-08-19 10:19 | S_PTH ---
PATIENT: Ankit Chowdary LOC: [facility]#:[id number] AGE/SX: 59/F ROOM: RE08/19/[address]: Mj Harper MD : 1965 BED: DIS: 08/19/2025 SPEC #: [id number] RECD: 08/19/25 11:17 STATUS: ANGEL REImmanuel #: [id number] BRANDO: 08/19/25 10:[address]: Mj Harper DEPT: [facility] Surgical RECD BY: Brooke Knight ENTERED: 08/19/25 11:18 SP TYPE: Surgical OTHR DR: Isaak AllanMD Tissues: A - Colon Polypectomy Procedures: Hematoxylin and Eosin Stain Gross and Microscopic Level 4
[2025-08-19 10:24] VITALS: BP 108/56; PULSE 47; RESP 17; O2SAT 97
[2025-08-19 10:34] VITALS: BP 98/68; PULSE 52; RESP 13; O2SAT 99
[2025-08-19 10:41] VITALS: BP 100/48; PULSE 48; RESP 17; O2SAT 99
== END 2025-08-19 10:48 | disposition home or self-care (01) ==
PROVIDERS: PCP Family Medicine; Referring Provider Nurse Practitioner; Visit Provider Internal Medicine Gastroenterology
PROC: 0DJD8ZZ Inspection of Lower Intestinal Tract, Via Natural or Artificial Opening Endoscopic (ICD-10-PCS; CPT 45378; principal; 2025-08-19 10:00)
DX: Z12.11 Encounter for screening for malignant neoplasm of colon (principal); K63.5 Polyp of colon; K57.30 Diverticulosis of large intestine without perforation or abscess without bleeding; K64.8 Other hemorrhoids; F12.90 Cannabis use, unspecified, uncomplicated
CPT/HCPCS: 45385; 88305; J2003; J2704; J7120